=== PATIENT | female | born 1990 | race Caucasian/White ===

== ENCOUNTER 2017-12-18 17:53 | Emergency (ER) | payer MEDICAID, OTHER ==
[2017-12-18 17:53] VITALS: BMI 20.3
[2017-12-18 18:00] VITALS: BP 111/70; PULSE 97; RESP 19; TEMP 98.7; O2SAT 98
--- NOTE | 2017-12-18 18:11 | C.PDOC ---
History Of Present Illness 27 yo female came to the ER stating " I sprained my ankle." Pt notes that on monday she was rushing in the rain to work and stepped wrong. Reports no pain or swelling until yesterday. Denies change in sensation. No other injury. Time Seen by Provider: 12/18/17 17:55 Chief Complaint (Nursing): Lower Extremity Problem/Injury History Per: Patient History/Exam Limitations: no limitations Onset/Duration Of Symptoms: Days - Ankle/Foot Description Of Injury: Twisted Past Medical History Vital Signs: Last Vital Signs Temp 98.7 F 12/18/17 17:56 Pulse 97 H 12/18/17 17:56 Resp 19 12/18/17 17:56 BP 111/70 12/18/17 17:56 Pulse Ox 98 12/18/17 18:14 - Medical History PMH: Anemia, Seizures (childhood febrile seizure) - [facility] APPLICATION OF SPLINT (02/01/13) TETANUS TOXOID ADMINIST (05/05/14) Family History: States: Unknown Family Hx - Social History Hx Tobacco Use: Yes Hx Alcohol Use: Yes Hx Substance Use: No - Immunization History Hx Tetanus Toxoid Vaccination: No Hx Influenza Vaccination: Yes Hx Pneumococcal Vaccination: No Review Of Systems Except As Marked, All Systems Reviewed And Found Negative. Musculoskeletal: Positive for: Other (right ankle) Physical Exam - Physical Exam Appears: Well, Non-toxic, No Acute Distress Skin: Warm, Dry Head: Atraumatic, Normacephalic Eye(s): bilateral: Normal Inspection, EOMI Nose: Normal Chest: Symmetrical Respiratory: No Accessory Muscle Use Back: Normal Inspection Extremity: Normal ROM, Tenderness, No Calf Tenderness, Capillary Refill (<2 sec) , Swelling ((+) tenderness and swelling to the lateral aspect of the right malleolus) Pulses: Left Dorsalis Pedis: Normal, Right Dorsalis Pedis: Normal Neurological/Psych: Oriented x3, Normal Motor, Normal Sensation ED Course And Treatment O2 Sat by Pulse Oximetry: 98 - Other Rad right ankle X-Ray: Interpreted by Me, Viewed By Me Interpretation: no fx or dislocation Progress Note: Pt declined pain medication. Ice applied. Aircast applied by windows server support technician. Pt declined crutches. Instructed RICE and follow up with ortho in 1-2 days. Disposition - Disposition Referrals: Paolo Dawson MD [Staff Provider] - Disposition: HOME/ ROUTINE Disposition Time: 18:13 Condition: STABLE Additional Instructions: Rest, ice and elevate the area. Follow up with the bone doctor in 1-2 days. Return to ER if symptoms persist or worsen. Instructions: Ankle Sprain (DC) Forms: [facility] (French), Work Excuse - Clinical Impression Clinical Impression: Ankle sprain
--- NOTE | 2017-12-19 08:11 | RAD ---
Date of service: 12/18/2017 PROCEDURE: Right Ankle Radiographs. HISTORY: trauma COMPARISON: None FINDINGS: BONES: Normal. No fracture. JOINTS: Normal. No osteoarthritis. Ankle mortise maintained. Talar dome intact SOFT TISSUES: Normal. OTHER FINDINGS: None. IMPRESSION: Normal right ankle radiographs.
== END 2017-12-18 18:44 | disposition home or self-care (01) ==
LOC: C.ER 17:53
DX: S93.401A Sprain of unspecified ligament of right ankle, initial encounter (principal); X50.9XXA Other and unspecified overexertion or strenuous movements or postures, initial encounter